=== PATIENT | male | born 1985 | race Caucasian/White ===

== ENCOUNTER → 2022-07-25 08:33 | Outpatient (CLI) | payer OTHER, SELFPAY ==
--- NOTE | ~2022-07-25 | XR_ITS ---
AP and lateral views of the right hip Clinical history: Pain Findings: No acute fracture or dislocation is seen. Osseous alignment is anatomic. Bilateral hip and SI joint spaces are preserved. Soft tissues are unremarkable. Impression: No significant abnormality is seen. Reviewed, dictated and finalized at location . Impression: No significant abnormality is seen.
== END ==
PROVIDERS: PCP Family Medicine; Visit Provider Nurse Practitioner Family
DX: M25.551 Pain in right hip (principal)
CPT/HCPCS: 73502

== ENCOUNTER 2022-08-10 05:00 | Emergency (ER) | payer OTHER, SELFPAY ==
[2022-08-10 05:01] VITALS: BP 146/98; PULSE 70; RESP 14; TEMP 36.7; O2SAT 100
[2022-08-10 05:19] VITALS: BP 156/90; PULSE 72; RESP 18; O2SAT 97
--- NOTE | 2022-08-10 05:45 | ED.GENADULT ---
HPI - General Adult General Chief complaint: Extremity Injury, Lower Stated complaint: R leg pain Time Seen by Provider: 08/10/22 05:26 History of Present Illness HPI narrative: This is a 37-year-old male with history of chronic leg brain presenting with leg pain. the patient injured his leg in April. Since then he has seen multiple specialists and going to rehab. After his rehab on Thursday he says that he strained the leg and the pain is worse today than usual. He has taken his normal medications which are tramadol, naproxen and tizanidine with no relief. He is seeking pain relief tonight and will follow up with his primary physician Related Data Allergies Allergy/AdvReac Type Severity Reaction Status Date / Time No Known Allergies Allergy Mild Verified 07/25/22 08:15 [facility] Past Medical History Medical History Adenoma determined by biopsy of liver COVID-19 positive 01/06/20 Encounter for ablation of malignant neoplasm with goal of cure/eradication Focal nodular hyperplasia determined by liver biopsy Obesity Pneumothorax, iatrogenic Social History Social History Smoking status: Smoker, status unknown Alcohol intake: current Lack of Transportation: No Lack of Food: Never True Current Housing: I Have Housing Concerned About Future Housing: No Difficulty Paying Gas/Electric Bills: No Difficulty Paying for Meds: No Currently Unemployed: No Education: Associate Degree Difficulty w/ Childcare or Family Care: No Exam Narrative: APPEARANCE: No apparent distress. Head: atraumatic. EYES: EOMI, NOSE: Atraumatic NECK: Trachea midline RESPIRATORY: No increased rate of breathing CARDIOVASCULAR: RRR, ABDOMINAL: Non-distended MUSCULOSKELETAl: exam of the lower extremity revealed no weakness @ the hip knee or ankle. No motor or sensory deficits. Straight leg was positive. Patient is able ambulate no overlying skin changes. Compartments are soft. Pulses are +2. Cap refills less than 2 seconds NEURO: Alert. Moving 4/4 extremities SKIN:: Warm, dry. Normal color PSYCHIATRIC: Normal affect Course Vital Signs Vital signs: Vital Signs Temperature 98.1 F 08/10/22 05:01 Pulse Rate 70 08/10/22 05:01 Respiratory Rate 08/10/22 05:01 Blood Pressure 146/98 H 08/10/22 05:01 Pulse Oximetry 100 08/10/22 05:01 Oxygen Delivery Room Air 08/10/22 05:01 Temperature 98.1 F 08/10/22 05:01 Pulse Rate 72 08/10/22 05:19 Respiratory Rate 18 08/10/22 05:19 Blood Pressure 156/90 H 08/10/22 05:19 Pulse Oximetry 97 08/10/22 05:19 Oxygen Delivery Room Air 08/10/22 05:01 Medical Decision Making MDM Narrative Medical decision making narrative: -Presentation: 37-year-old presenting with acute on chronic right leg pain. Physical exam is unremarkable. -DDX includes but is not limited to: sciatica, neuropathy, muscle strain -Co-morbidities complicating care: chronically pain -Social determinants of health: patient works at a home, lives by himself -External Chart Review: review of office visits from June 2022 for leg pain. -Hx from independent Sources: None -Discussion of Management/Consultants: none -Independent interpretation of studies: none Dx tests considered but not ordered: none -Procedures: none -Interventions: Robaxin, oxycodone, dexamethasone -Shared decision making / Disposition: patient will be discharged to follow-up with primary care physician. -RX Vital Signs Vital Signs: Vital Signs Temperature 98.1 F 08/10/22 05:01 Pulse Rate 70 08/10/22 05:01 Respiratory Rate 14 08/10/22 05:01 Blood Pressure 146/98 H 08/10/22 05:01 Pulse Oximetry 100 08/10/22 05:01 Oxygen Delivery Room Air 08/10/22 05:01 Temperature 98.1 F 08/10/22 05:01 Pulse Rate 72 08/10/22 05:19 Respiratory Ra
[2022-08-10] MEDS: methocarbamoL 750 MG TABLET 1500 MG PO (05:55)
[2022-08-10] MEDS: oxyCODONE HCL (*CRX) 5 MG TAB IR PO (05:55)
[2022-08-10 06:04] VITALS: BP 149/89; PULSE 70; RESP 12; O2SAT 98
== END 2022-08-10 06:05 | disposition home or self-care (01) ==
PROVIDERS: Emergency Provider Emergency Medicine; PCP Family Medicine
DX: M79.604 Pain in right leg (principal); G89.29 Other chronic pain; Z86.16 Personal history of COVID-19; E66.9 Obesity, unspecified; Z68.25 Body mass index [BMI] 25.0-25.9, adult
CPT/HCPCS: 96372; 99283; A9270; J1100

== ENCOUNTER → 2022-08-11 12:42 | Outpatient (CLI) | payer OTHER, SELFPAY ==
--- NOTE | ~2022-08-11 | MR_ITS ---
MRI of the lumbar spine Clinical History: Right-sided sciatica Technique: Axial T2-weighted images, and sagittal T1-weighted, T2-weighted, and T2 fat-sat images wer e acquired. Findings: There is no fracture or subluxation of the lumbar spine. Osseous alignment is unchanged fro m prior exam. No suspicious bone marrow signal abnormality identified. At L1-L2, there is minimal disc bulge and moderate to advanced facet arthropathy. No kelly spinal can al stenosis or neural foraminal narrowing. At L2-L3, there is no disc bulge or herniation. There is moderate facet arthropathy. No spinal canal stenosis or neural foraminal narrowing. At L3-L4, there is minimal disc bulge with moderate to advanced facet arthropathy. No spinal canal st enosis or neural foraminal narrowing. At L4-L5, there is diffuse disc bulge with small right foraminal disc extrusion. There is severe righ t neural foraminal narrowing. Left neural foramen is mildly narrowed. No kelly central canal stenosis . There is advanced facet arthropathy bilaterally. At L5-S1, there is advanced degenerative disc narrowing with minimal disc bulge and moderate facet ar thropathy. No spinal canal stenosis. There is moderate bilateral neural foraminal narrowing. Paravertebral soft tissues are unremarkable. Impression: Advanced degenerative spondylosis at L4-L5, as detailed above. Moderate degenerative spondylosis at L5-S1, as detailed above. Mild degenerative changes in the remainder of the lumbar spine, as detailed above. Reviewed, dictated and finalized at [facility]. Impression: Advanced degenerative spondylosis at L4-L5, as detailed above. Moderate degenerative spondylosis at L5-S1, as detailed above. Mild degenerative changes in the remainder of the lumbar spine, as detailed abo ve.
--- NOTE | ~2022-08-11 | MR_ITS ---
MRI of the right hip Clinical history: Pain Technique: Coronal T1-weighted, T2-weighted, and proton-density fat-sat images, and axial T1-weighted and proton-density fat-sat images were acquired through the pelvis. Coronal T2-weighted images and c oronal, axial, and sagittal proton-density fat-sat images were acquired through the right hip. Findings: There is no fracture, avascular necrosis, or transient osteoporosis of either hip. Bone mar row signals in the proximal femora and visual is pelvic bones are unremarkable. There is minimal dege nerative change of the bilateral hip joints. No joint effusion. No definite right acetabular labral t ear. Musculature about the pelvis and right hip is unremarkable. No muscle atrophy or edema identified. Vi sualized tendons are intact. No soft tissue mass or fluid collection seen. No evidence for bursitis. IMPRESSION: Minimal degenerative change of both hip joints. Reviewed, dictated and finalized at location .
== END ==
PROVIDERS: PCP Family Medicine; Visit Provider Nurse Practitioner Family
DX: M54.31 Sciatica, right side (principal); M16.0 Bilateral primary osteoarthritis of hip; M47.896 Other spondylosis, lumbar region
CPT/HCPCS: 72148; 73721